=== PATIENT | male | born 2000 | race Two or more races ===

== ENCOUNTER 2024-11-05 08:34 | Emergency (ER) | payer MEDICAID, SELFPAY ==
[2024-11-05 08:34] VITALS: BMI 39.5
[2024-11-05 09:19] VITALS: BP 151/98; PULSE 100; RESP 18; TEMP 37.4; O2SAT 99
--- NOTE | 2024-11-05 09:21 | XR_ITS ---
Examination: lateral chest 2 views Technique: Upright PA lateral chest 2 views PA Date and time: 11/05/2024 0924 hrs. Indications: Coughing fever beginning 3 days ago. Findings: Normal heart size. Lungs are clear. The osseous structures are intact. Impression: No active disease.
--- NOTE | 2024-11-05 09:26 | EDNOTE_ITS ---
<Statement entered by Marissa Rausch MD - 11/17/24 11:17> As co-signing physician, I was present and available for consult prn. I concur with the plan and care as documented by the midlevel provider. Upper Respiratory Inf. RME/HPI General Chief Complaint: Flu Like Symptoms Stated Complaint: FELT HOT SINCE YESTERDAY Time Seen by Provider: 11/05/24 08:41 Source: patient Arrival date/time: 11/05/24 08:34 24-year-old male with no known medical history presents to the emergency room with a chief complaint of cough, congestion, fever x 2 days Mode of arrival: ambulatory Limitations: no limitations Related Data Previous Rx's ?Medication ?Instructions ?Recorded ibuprofen 800 mg tablet 800 mg PO TID PRN pain #30 t abs 11/19/22 Allergies Allergy/AdvReac Type Severity Reaction Status Date / Time No Known Allergies Allergy Verified 11/05/24 08:37 Review of Systems Review of Systems Systems Reviewed: All systems reviewed, normal except as documented Constitutional Constitutional: Reports system reviewed and no additional complaints, except as documented, Reports body ache(s), Reports chills, Denies fatigue, Reports fever(s), Reports headache(s) and Reports weakness Eyes Eyes: Reports system reviewed and no additional complaints, except as documented, Denies blurry vision and Denies change in vision ENT Ears, Nose, Mouth, and Throat: Reports system reviewed and no additional complaints, except as documented, Denies otalgia, Reports headache(s), Denies nasal congestion, Denies throat swelling and Denies vertigo Cardiovascular Cardiovascular: Reports system reviewed and no additional complaints, except as documented, Denies chest pain, Denies dyspnea and Denies dyspnea on exertion Respiratory Respiratory: Reports system reviewed and no additional complaints, except as documented, Denies chest congestion, Reports cough, Denies dyspnea, Denies dyspnea on exertion and Denies wheezing Gastrointestinal Gastrointestinal: Reports system reviewed and no additional complaints, except as documented, Denies abdominal pain, Denies cramping, Denies nausea and Denies vomiting Genitourinary Genitourinary: Reports system reviewed and no additional complaints, except as documented, Denies dysuria and Denies hematuria Musculoskeletal Musculoskeletal: Reports system reviewed and no additional complaints, except as documented and Denies back pain Integumentary/Breasts Skin/Breast: Reports system reviewed and no additional complaints, except as documented and Denies wounds Neurologic Neurologic: Reports system reviewed and no additional complaints, except as documented, Denies confusion, Reports headache(s), Denies lack of coordination, Denies vertigo and Reports weakness Psychiatric Psychiatric: Reports system reviewed and no additional complaints, except as documented, Denies anxiety, Denies confusion, Denies depression, Denies paranoia, Denies suicidal ideation and Denies tactile hallucinations Endocrine Endocrine: Reports system reviewed and no additional complaints, except as documented and Denies fatigue Hematologic/Lymphatic Hematologic/Lymphatic: Reports system reviewed and no additional complaints, except as documented and Denies lymphadenopathy Allergic/Immunologic Allergic/Immunologic: Reports system reviewed and no additional complaints, except as documented, Denies throat swelling, Denies urticaria and Denies wheezing ED Exam General Limitations: Present no limitations General appearance: Present alert and in no apparent distress Head Head exam: Present atraumatic Eye Eye exam: Present normal appearance, PERRL and EOMI ENT ENT exam: Present normal exam, normal oropharynx and mucous membranes moist Neck Neck exam: Present normal inspection, full ROM and trachea midline Chest Chest inspection: Present normal inspection and symmetric chest wall rise Respiratory Respiratory exam: Present normal lung sounds bilaterally; Absent respiratory distress, wheezes, stridor, accessory muscle use or prolonged expiratory phase Cardiovascular Cardiovascular exam: Present regular rate, normal rhythm, tachycardia, normal heart sounds, +S1 and +S2; Absent irregular rhythm, systolic murmur, diastolic murmur, rubs, gallop, clicks or JVD Abdominal Exam Abdominal exam: Present soft and normal bowel sounds; Absent tenderness Extremities Exam Extremities exam: Present normal inspection and full ROM Back Exam Back exam: Present normal inspection and full ROM Neurological Exam Neurological exam: Present alert, oriented X3 and CN II-XII intact Psychiatric Psychiatric exam: Present normal affect and normal mood Skin Skin exam: Present warm, dry, intact and normal color Course Quality Measures none Orders Category Date Time Status Bedside COVID-19 Antigen Test NOW Care 11/05/24 09:21 Completed Bedside Influenza A&B Antigen Test NOW Care 11/05/24 09:21 Completed XR chest 2V Stat Exams 11/05/24 09:21 Completed Strep A Rapid Stat Lab 11/05/24 09:28 Completed Acetaminophen Tab [Tylenol ES Tab] Med 11/05/24 09:21 Discontinued 1,000 mg PO X1 ONE Vital Signs Vital signs: Vital Signs Temperature 99.3 F 11/05/24 09:19 Pulse Rate 100 11/05/24 09:19 Respiratory Rate 18 11/05/24 09:19 Blood Pressure 151/98 H 11/05/24 09:19 Pulse Oximetry (%) 99 11/05/24 09:19 Oxygen Delivery Method Room Air 11/05/24 09:19 Upper Respiratory Infection MDM Narrative MDM Narrative:: 24-year-old male with no known medical history presents to the emergency room with a chief complaint of cough, congestion, fever x 2 days Patient is hemodynamically stable and in no apparent distress. Patient is afebrile not tachycardic not tachypneic and O2 saturation is 99% on room air Physical examination shows clear bilateral lung sounds there is no wheezing stridor or any abnormal breath sounds Patient tested positive for COVID-19 Patient was discharged and educated to follow-up with primary care provider in the next 24 to 48 hours and return to the emergency room for any evidence of worsening signs or symptoms Patient data External records reviewed:: [facility] previous records Clinical information provided by:: patient Social determinants that could affect healthcare access:: none Patient has the following chronic illnesses:: No chronic illness How is presenting disease/condition affected by chronic disease/condition?: no chronic disease Evaluation data The following diagnostics were reviewed and interpreted by me:: lab results and radiology exam(s) Lab and/or radiology exams considered but not ordered:: Labs and radiology exams considered and ordered Interpretation Summary: N/A Medications / Prescriptions Medications or Prescriptions considered but not ordered:: Medication given Medication administrations:: Medication Administration History Discontinued Medications Acetaminophen (Acetaminophen 500 Mg Tablet) 1,000 mg PO X1 ONE Stop: 11/05/24 09:22 Last Admin: 11/05/24 09:43 Dose: 1,000 mg Documented By: [facility] Medication given Consultations Consultation(s) initiated? (list below): No Diagnosis Upper Respiratory Differential Diagnosis: upper respiratory infection, otitis media, sinusitis, viral infection, influenza and other Most likely diagnosis given after review of the tests above:: COVID-19 Admission Indicated Admission indicated?: not indicated Admission Request Was there a request for admission?: No Disposition Plan Disposition Plan: Discharge Discharge Attestation Discharge Attestation: The patient and all family members were given an opportunity to ask questions and understood the discharge instructions. Discharge instructions specifically effects, indications for sooner follow up or return to the emergency department, and the expected course of current diagnosis. Patient condition: Stable Discharge Plan Plan Patient Disposition: HOME (Self Care) Discharge Disposition comment: Stable Prescriptions/Referrals Prescriptions/Med Rec: No Action ibuprofen 800 mg tablet 800 mg PO TID PRN (Reason: pain) Qty: 30 0RF Referrals: No Primary/Family,Physician [Primary Care Provider] - In 1 week Problem List Clinical Impression: COVID-19 Patient/Caregiver Discharge Instructions Education Materials: 2019-nCoV Additional Instructions: Please follow-up with your primary care provider in the next 24 to 48 hours. You tested positive for COVID-19. The treatment for this is symptom management. Please continue to take Tylenol and ibuprofen for fever management. Please increase your oral fluid intake. For any evidence of worsening signs or symptoms please return to the emergency room immediately Print Language: Trinidadian Stand Alone Forms: Marcelle Award Info., Work/School Release, Patient Portal Info Letter PA/AURELIA Supervising Physician PA/AURELIA Supervising Physician: Dr. Martino
[2024-11-05 09:43] VITALS: TEMP 37.4
[2024-11-05] MEDS: ACETAMINOPHEN 500 MG TABLET 1000 MG PO (09:43)
[2024-11-05 09:54] LABS: Strep A Rapid Negative (Negative)
== END 2024-11-05 10:29 | disposition home or self-care (01) ==
PROVIDERS: Nurse Practitioner Family; Emergency Provider Emergency Medicine
DX: U07.1 COVID-19 (principal)
CPT/HCPCS: 71046; 87651; 99283; A9270